=== PATIENT | male | born 1955 | race Caucasian/White ===

== ENCOUNTER 2023-01-27 10:42 | Observation (INO) | payer OTHER ==
[2023-01-27] MEDS ORDERED: ACETAMINOPHEN 500 MG TABLET (FP) PO ONE (12:34)
[2023-01-27] MEDS ORDERED: methylPREDNISolone NA SUCC 125 MG/2 ML VIAL IVPB ONE (12:50)
[2023-01-27] MEDS ORDERED: ALBUTEROL SO4 2.5/IPRATROPIUM 0.5 INH SOL 3 ML VIAL.NEB. NEB ONE ×2 (13:14→21:02)
[2023-01-27] MEDS ORDERED: ACETAMINOPHEN INJECTION 100 ML IVPB ONE (13:14)
[2023-01-27] MEDS ORDERED: methylPREDNISolone NA SUCC 125 MG/2 ML VIAL ONE (13:14)
[2023-01-27 13:20] LABS: BASO % 1.1 % (0-2.0); EOS % 3.7 % (0-4.5); HEMATOCRIT 45.2 % (35.4-49); HEMOGLOBIN 15.2 GM/dL (11.7-16.9); LYMPH % 8.8 % (8-40); MCH 29.6 pg (25.7-33.7); MCHC 33.7 g/dl (32.0-35.9); MEAN CELL VOLUME 87.8 fl (80-96); MEAN PLT VOLUME 7.9 fl (7.5-11.1); MONO % 9.3 % (3.8-10.2); NEUT % 77.1 % (42.8-82.8); PLATELET COUNT 229 10^3/uL (134-434); RBC 5.15 M/mm3 (4.00-5.60); RDW 14.7 % (11.9-15.9); WHITE BLOOD COUNT 7.3 K/mm3 (4.0-10.0)
[2023-01-27] MEDS: ALBUTEROL SO4 2.5/IPRATROPIUM 0.5 INH SOL 3 ML VIAL.NEB. NEB SCH ×4 (13:24→14:05)
[2023-01-27 13:25] LABS: VENOUS BASE EXCESS 2.7 mmol/L (-2-2); VENOUS O2 SATURATION 30.7 % (70-80); VENOUS PCO2 61.4 mmHg (38-52); VENOUS PH 7.318 (7.310-7.410)
[2023-01-27] MEDS ORDERED: ACETAMINOPHEN 500 MG TABLET (FP) ONE (13:26)
[2023-01-27 13:27] LABS: INR 1.14 (0.83-1.09); PROTHROMBIN TIME (PATIENT) 13.2 SEC (9.7-13.0)
[2023-01-27 13:45] LABS: POTASSIUM 4.1 mmol/L (3.5-5.1)
[2023-01-27 13:47] LABS: ALBUMIN 3.9 g/dl (3.4-5.0); BLOOD UREA NITROGEN 10.6 mg/dL (7-18); CALCIUM 8.8 mg/dL (8.5-10.1); MAGNESIUM 1.9 mg/dL (1.8-2.4)
[2023-01-27 13:51] LABS: PHOSPHOROUS 2.3 mg/dL (2.5-4.9)
[2023-01-27 13:52] LABS: BILIRUBIN,TOTAL 1.3 mg/dL (0.2-1); TOT PROT 7.6 g/dl (6.4-8.2)
[2023-01-27 13:56] LABS: N-TERMINAL BNP 108.5 pg/ml (5-125)
[2023-01-27 14:09] LABS: LACTIC ACID 2.2 mmol/L (0.4-2.0)
[2023-01-27] MEDS ORDERED: AZITHROMYCIN IVPB 500 MG in DEXTROSE 5%-WATER - 250 ML IVPB ONE (17:37)
[2023-01-27] MEDS ORDERED: CEFTRIAXONE 1 GM/50 ML BAG ONE (17:53)
[2023-01-27] MEDS ORDERED: AZITHROMYCIN IVPB 500 MG/250 ML BAG IVPB ONE (17:54)
[2023-01-27] MEDS ORDERED: NAPH,MB-DB/K PH,MBDB POWDER PACKET PO ONE (19:01)
[2023-01-27] MEDS ORDERED: LACTATED RINGERS SOLUTION 1,000 ML/1,000 ML INFUS.BAG IV ONE (19:03)
[2023-01-27] MEDS ORDERED: NAPH,MB-DB/K PH,MBDB POWDER PACKET ONE (19:40)
[2023-01-27] MEDS: METOPROLOL TARTRATE 25 MG TABLET (FP) PO SCH (22:33)
[2023-01-27] MEDS: RIVAROXABAN 20 MG TABLET PO SCH (22:33)
[2023-01-27] MEDS: MEMANTINE HCL 10 MG TABLET (FP) PO SCH (22:33)
[2023-01-27] MEDS: MONTELUKAST NA 10 MG TABLET PO SCH (22:33)
[2023-01-27] MEDS: risperiDONE 0.5 MG TABLET PO SCH (22:34)
[2023-01-27] MEDS: INSULIN SLIDING SCALE (NOVOLOG) 1 VIAL SQ SCH (22:37)
[2023-01-28 00:51] VITALS: RESP 18; BMI 28.3
[2023-01-28] MEDS: methylPREDNISolone NA SUCC 40 MG/1 ML VIAL IVPUSH SCH ×5 (01:31→18:41)
[2023-01-28 02:32] LABS: ALBUMIN 3.6 g/dl (3.4-5.0)
[2023-01-28 02:34] LABS: BILIRUBIN,DIRECT 0.3 mg/dL (0.0-0.2)
[2023-01-28 02:36] LABS: BILIRUBIN,TOTAL 0.9 mg/dL (0.2-1); TOT PROT 7.5 g/dl (6.4-8.2)
[2023-01-28] MEDS: INSULIN SLIDING SCALE (NOVOLOG) 1 VIAL SQ SCH ×4 (06:24→22:58)
[2023-01-28] MEDS: ALBUTEROL SO4 2.5/IPRATROPIUM 0.5 INH SOL 3 ML VIAL.NEB. NEB SCH ×4 (07:51→20:03)
[2023-01-28 09:22] LABS: HEMATOCRIT 44.8 % (35.4-49); HEMOGLOBIN 14.8 GM/dL (11.7-16.9); MCH 29.2 pg (25.7-33.7); MEAN CELL VOLUME 88.3 fl (80-96); MEAN PLT VOLUME 8.3 fl (7.5-11.1); PLATELET COUNT 274 10^3/uL (134-434); RBC 5.08 M/mm3 (4.00-5.60); RDW 14.3 % (11.9-15.9); WHITE BLOOD COUNT 13.5 K/mm3 (4.0-10.0)
[2023-01-28 09:44] LABS: POTASSIUM 4.4 mmol/L (3.5-5.1)
[2023-01-28 09:45] LABS: CALCIUM 9.6 mg/dL (8.5-10.1)
[2023-01-28 09:48] LABS: BILIRUBIN,DIRECT 0.4 mg/dL (0.0-0.2); BLOOD UREA NITROGEN 15.5 mg/dL (7-18)
[2023-01-28 09:51] LABS: BILIRUBIN,TOTAL 1.4 mg/dL (0.2-1)
[2023-01-28 09:52] LABS: TOT PROT 8.1 g/dl (6.4-8.2)
[2023-01-28] MEDS ORDERED: AZITHROMYCIN IVPB 500 MG/250 ML BAG IVPB SCH (10:00)
[2023-01-28] MEDS ORDERED: FLU VACCINE (FLULAVAL) PF 60 MCG/0.5 ML SYRINGE 2023-2024 IM ONE (11:00)
[2023-01-28] MEDS ORDERED: PNEUMOC 20-VAL CONJ-DIP CRM/PF 0.5 ML SYRINGE IM ONE (11:00)
[2023-01-28] MEDS: RIVAROXABAN 20 MG TABLET PO SCH (11:00)
[2023-01-28] MEDS: risperiDONE 0.5 MG TABLET PO SCH ×2 (11:00→19:23)
[2023-01-28] MEDS: MEMANTINE HCL 10 MG TABLET (FP) PO SCH (11:00)
[2023-01-28] MEDS: METOPROLOL TARTRATE 25 MG TABLET (FP) PO SCH ×2 (11:00→22:53)
[2023-01-28] MEDS: AZITHROMYCIN 250 MG TABLET PO SCH (11:00)
[2023-01-28] MEDS: CEFTRIAXONE 1 GM in DEXTROSE 5%-WATER - 50 ML IVPB SCH (13:20)
[2023-01-28] MEDS: MONTELUKAST NA 10 MG TABLET PO SCH (22:53)
[2023-01-29] MEDS ORDERED: MELATONIN 5 MG TABLETS PO ONE (01:02)
[2023-01-29] MEDS: methylPREDNISolone NA SUCC 40 MG/1 ML VIAL IVPUSH SCH ×2 (02:00→11:27)
[2023-01-29 05:37] VITALS: BP 152/96; PULSE 79; TEMP 97.5
[2023-01-29] MEDS: INSULIN SLIDING SCALE (NOVOLOG) 1 VIAL SQ SCH (06:57)
[2023-01-29] MEDS: ALBUTEROL SO4 2.5/IPRATROPIUM 0.5 INH SOL 3 ML VIAL.NEB. NEB SCH (08:05)
[2023-01-29] MEDS: MEMANTINE HCL 10 MG TABLET (FP) PO SCH (09:18)
[2023-01-29] MEDS: RIVAROXABAN 20 MG TABLET PO SCH (09:18)
[2023-01-29] MEDS: risperiDONE 0.5 MG TABLET PO SCH (09:18)
[2023-01-29] MEDS: METOPROLOL TARTRATE 25 MG TABLET (FP) PO SCH (09:18)
[2023-01-29] MEDS: CEFTRIAXONE 1 GM in DEXTROSE 5%-WATER - 50 ML IVPB SCH (11:27)
[2023-01-29] MEDS: AZITHROMYCIN 250 MG TABLET PO SCH (11:27)
== END 2023-01-29 11:00 | disposition home or self-care (01) ==
LOC: JER 10:42 → JERBED 17:45 → UNDOADMOB 17:45 → INTOOBSV 17:45 → J6S 21:46 → JERBED 21:46 → J6S 01-28 10:49
PROVIDERS: ADMIT Internal Medicine; ATTEND Internal Medicine
PROC: 3E0F7GC Introduction of Other Therapeutic Substance into Respiratory Tract, Via Natural or Artificial Opening (ICD-10-PCS; principal; 2023-01-28)
PROC: 3E03329 Introduction of Other Anti-infective into Peripheral Vein, Percutaneous Approach (ICD-10-PCS; 2023-01-28)
PROC: 3E023GC Introduction of Other Therapeutic Substance into Muscle, Percutaneous Approach (ICD-10-PCS; 2023-01-28)
PROC: 3E0337Z Introduction of Electrolytic and Water Balance Substance into Peripheral Vein, Percutaneous Approach (ICD-10-PCS; 2023-01-28)
DX: J96.01 Acute respiratory failure with hypoxia (principal); J44.1 Chronic obstructive pulmonary disease with (acute) exacerbation; G30.9 Alzheimer's disease, unspecified; R74.01 Elevation of levels of liver transaminase levels; F02.80 Dementia in other diseases classified elsewhere, unspecified severity, without behavioral disturbance, psychotic disturbance, mood disturbance, and anxiety; I48.91 Unspecified atrial fibrillation; Z87.738 Personal history of other specified (corrected) congenital malformations of digestive system; E11.9 Type 2 diabetes mellitus without complications; Z23 Encounter for immunization
CPT/HCPCS: 0241U-QW; 36415; 71045-TC-FY; 71250-TC; 76705-TC; 80048; 80053; 80061; 80076; 82803; 82962; 83036; 83605; 83735; 83880; 84100; 84484; 85025; 85027; 85379; 85610; 85730; 86850; 86900; 86901; 87040; 87076; 90677; 90686; 93005; 93010; 94640; 94761; 96361; 96365; 96372; 96375; 97116-GP; 97161-GP; 99285-25; G0008; G0378

== ENCOUNTER 2023-03-30 15:11 | Observation (INO) | payer OTHER ==
[2023-03-30 15:16] VITALS: BMI 27.3
[2023-03-30] MEDS ORDERED: ALBUTEROL SO4 2.5/IPRATROPIUM 0.5 INH SOL 3 ML VIAL.NEB. NEB ONE (18:21)
[2023-03-30 18:29] LABS: BASO % 1.5 % (0-2.0); EOS % 5.4 % (0-4.5); HEMATOCRIT 42.3 % (35.4-49); HEMOGLOBIN 14.4 GM/dL (11.7-16.9); LYMPH % 26.9 % (8-40); MCH 29.8 pg (25.7-33.7); MEAN CELL VOLUME 87.7 fl (80-96); MEAN PLT VOLUME 7.7 fl (7.5-11.1); MONO % 11.1 % (3.8-10.2); NEUT % 55.1 % (42.8-82.8); PLATELET COUNT 244 10^3/uL (134-434); RBC 4.82 M/mm3 (4.00-5.60); VENOUS BASE EXCESS 2.5 mmol/L (-2-2); VENOUS O2 SATURATION 66.6 % (70-80); VENOUS PH 7.401 (7.310-7.410); WHITE BLOOD COUNT 9.1 K/mm3 (4.0-10.0)
[2023-03-30] MEDS: ALBUTEROL SO4 2.5/IPRATROPIUM 0.5 INH SOL 3 ML VIAL.NEB. NEB SCH ×2 (18:30)
[2023-03-30 18:44] LABS: POTASSIUM 4.1 mmol/L (3.5-5.1)
[2023-03-30 18:45] LABS: INR 1.98 (0.83-1.09); PROTHROMBIN TIME (PATIENT) 22.8 SEC (9.7-13.0)
[2023-03-30 18:47] LABS: ALBUMIN 3.7 g/dl (3.4-5.0); BLOOD UREA NITROGEN 23.4 mg/dL (7-18)
[2023-03-30 18:48] LABS: ACTIVATED PTT 41.9 SECONDS (25.2-36.5)
[2023-03-30 18:51] LABS: BILIRUBIN,TOTAL 1.1 mg/dL (0.2-1)
[2023-03-30 18:52] LABS: TOT PROT 6.7 g/dl (6.4-8.2)
[2023-03-30 18:55] LABS: N-TERMINAL BNP 167.4 pg/ml (5-125)
[2023-03-30] MEDS ORDERED: ALBUTEROL SO4 2.5/IPRATROPIUM 0.5 INH SOL 3 ML VIAL.NEB. NEB PRN (20:55)
[2023-03-30] MEDS ORDERED: ALBUTEROL SO4 HFA INHALER IH PRN (20:55)
[2023-03-30] MEDS ORDERED: APIXABAN 5 MG TABLET ONE (22:24)
[2023-03-30] MEDS ORDERED: ROSUVASTATIN CA 5 MG TABLET ONE (22:24)
[2023-03-30] MEDS ORDERED: METOPROLOL TARTRATE 25 MG TABLET (FP) ONE (22:24)
[2023-03-30] MEDS: APIXABAN 5 MG TABLET PO SCH (22:47)
[2023-03-30] MEDS: ROSUVASTATIN CA 10 MG TABLET PO SCH (22:47)
[2023-03-30] MEDS: METOPROLOL TARTRATE 25 MG TABLET (FP) PO SCH (22:47)
[2023-03-31] MEDS: MEMANTINE HCL 5 MG TABLET (UD) PO ONE (00:05)
[2023-03-31] MEDS: BUDESONIDE/FORMETEROL FUMARATE 80/4.5 mcg INHALER IH SCH (00:05)
[2023-03-31 08:03] LABS: BASO % 1.1 % (0-2.0); EOS % 3.7 % (0-4.5); HEMATOCRIT 39.2 % (35.4-49); HEMOGLOBIN 13.8 GM/dL (11.7-16.9); LYMPH % 26.8 % (8-40); MCH 30.4 pg (25.7-33.7); MCHC 35.2 g/dl (32.0-35.9); MEAN CELL VOLUME 86.4 fl (80-96); MEAN PLT VOLUME 8.1 fl (7.5-11.1); MONO % 10.4 % (3.8-10.2); PLATELET COUNT 210 10^3/uL (134-434); RBC 4.53 M/mm3 (4.00-5.60); RDW 15.4 % (11.9-15.9); WHITE BLOOD COUNT 6.5 K/mm3 (4.0-10.0)
[2023-03-31 08:08] LABS: POTASSIUM 3.8 mmol/L (3.5-5.1)
[2023-03-31 08:11] LABS: CALCIUM 8.7 mg/dL (8.5-10.1)
[2023-03-31] MEDS: PANTOPRAZOLE 40 MG TABLET PO SCH (08:11)
[2023-03-31] MEDS: EMPAGLIFLOZIN (JARDIANCE) 10 MG TABLET PO SCH (08:11)
[2023-03-31 08:15] LABS: CREATININE 1.1 mg/dL (0.55-1.3)
[2023-03-31] MEDS ORDERED: HALOPERIDOL LACTATE 5 MG/ML ONE (13:57)
[2023-03-31] MEDS: HALOPERIDOL LACTATE 5 MG/ML IM ONE (14:04)
[2023-03-31] MEDS ORDERED: ROSUVASTATIN CA 5 MG TABLET ONE (22:18)
[2023-03-31] MEDS ORDERED: METOPROLOL TARTRATE 25 MG TABLET (FP) ONE (22:18)
[2023-03-31] MEDS ORDERED: APIXABAN 5 MG TABLET ONE (22:18)
[2023-03-31] MEDS: HALOPERIDOL 0.5 MG TABLET PO SCH (23:20)
[2023-04-01] MEDS ORDERED: PANTOPRAZOLE 40 MG TABLET PO ONE ×2 (06:34→08:35)
[2023-04-01] MEDS ORDERED: APIXABAN 5 MG TABLET ONE (08:35)
[2023-04-01] MEDS ORDERED: METOPROLOL TARTRATE 25 MG TABLET (FP) ONE (08:35)
[2023-04-01] MEDS: HALOPERIDOL 0.5 MG TABLET PO ONE (17:18)
[2023-04-01] MEDS: HALOPERIDOL LACTATE 5 MG/ML IM PRN (19:48)
[2023-04-01] MEDS: THIAMINE HCL 200 MG/2 ML VIAL IVPB SCH (23:58)
[2023-04-02] MEDS: HALOPERIDOL 1 MG TABLET PO SCH
[2023-04-04 06:55] VITALS: RESP 18
[2023-04-04] MEDS: QUEtiapine FUMARATE 50 MG TABLET PO SCH (10:43)
[2023-04-04 18:03] VITALS: BP 136/63; PULSE 58; TEMP 97.9
== END 2023-04-04 18:54 | disposition home health service (06) ==
LOC: JER 15:11 → JERBED 19:22 → J4W 04-01 14:00
PROVIDERS: ADMIT Family Medicine; ATTEND Family Medicine
PROC: 3E0F7GC Introduction of Other Therapeutic Substance into Respiratory Tract, Via Natural or Artificial Opening (ICD-10-PCS; principal; 2023-03-30)
PROC: 3E023NZ Introduction of Analgesics, Hypnotics, Sedatives into Muscle, Percutaneous Approach (ICD-10-PCS; 2023-03-30)
PROC: 3E033GC Introduction of Other Therapeutic Substance into Peripheral Vein, Percutaneous Approach (ICD-10-PCS; 2023-03-30)
PROC: 3E033GC Introduction of Other Therapeutic Substance into Peripheral Vein, Percutaneous Approach (ICD-10-PCS; 2023-03-30)
DX: J45.901 Unspecified asthma with (acute) exacerbation (principal); F03.90 Unspecified dementia, unspecified severity, without behavioral disturbance, psychotic disturbance, mood disturbance, and anxiety; R06.02 Shortness of breath; E11.9 Type 2 diabetes mellitus without complications; I48.91 Unspecified atrial fibrillation; Z79.01 Long term (current) use of anticoagulants; R53.83 Other fatigue; R09.89 Other specified symptoms and signs involving the circulatory and respiratory systems; Z87.891 Personal history of nicotine dependence
CPT/HCPCS: 0241U-QW; 36415; 70450-TC; 71046-TC-FY; 80048; 80053; 82607; 82803; 82962; 83880; 84443; 84484; 85025; 85610; 85730; 86780; 93005; 93010; 94640; 96372; 96374; 96375; 97116-GP; 97162-GP; 99285-25; G0378